=== PATIENT | male | born 1950 | race Caucasian/White ===

== ENCOUNTER 2021-07-25 19:51 | Emergency (ER) | payer MEDICARE ==
[~2021-07-25 19:51] MED LIST: ANORO ELLIPTA1 EACH INH; BENICAR40 MG PO; CLARITIN10 MG PO; CLEOCIN HCL300 MG PO; CRESTOR20 MG PO; ECOTRIN81 MG PO; ENDOCET 7.5-321 EACH PO; GLUCOPHAGE1000 MG PO; HYGROTON TAB 2525 MG PO; INVOKANA100 MG PO; JANUVIA100 MG PO; LOPRESSOR50 MG PO; NEURONTIN400 MG PO; NORVASC10 MG PO; OMEPRAZOLE-BIC1 EAC1 PO; PROTONIX40 MG PO; PROZAC20 MG PO; SINGULAIR10 MG PO; TEGRETOL 200 M200 MG PO; TRULICITY1.5 MG/0.5 SQ
[2021-07-25 20:35] LABS: HEMOGLOBIN 16.7 gm/dl (14.0-17.5); RED BLOOD COUNT 4.76 M/UL (4.20-5.50); WHITE BLOOD COUNT 10.2 K/UL (4.5-11.0)
== END 2021-07-25 22:05 | disposition left against medical advice (07) ==
LOC: ER1 19:51
PROVIDERS: Family Medicine
DX: I11.9 Hypertensive heart disease without heart failure (principal); E11.9 Type 2 diabetes mellitus without complications; I25.2 Old myocardial infarction; J44.9 Chronic obstructive pulmonary disease, unspecified; F17.210 Nicotine dependence, cigarettes, uncomplicated
CPT/HCPCS: 80053; 81001; 85025; 99281

== ENCOUNTER 2021-08-20 17:46 | Emergency (ER) | payer MEDICARE | END 2021-08-20 18:37 | disposition left against medical advice (07) | LOC: ER1 17:46 | DX: R07.9 Chest pain, unspecified (principal); M54.9 Dorsalgia, unspecified; E11.9 Type 2 diabetes mellitus without complications; I11.9 Hypertensive heart disease without heart failure; Z71.6 Tobacco abuse counseling | CPT/HCPCS: 93005; 99281 ==